=== PATIENT | male | born 1985 | race Two or more races ===

== ENCOUNTER 2024-06-03 16:29 | Emergency (ER) | payer OTHER ==
[~2024-06-03] VITALS: Ht 162.6 cm; Wt 84.8 kg
[2024-06-03] MEDS ORDERED: MAVYRET 100-401 EACH PO (16:53)
[2024-06-03] MEDS ORDERED: METADONA (16:53)
[2024-06-03] MEDS ORDERED: ZOLOFT100 MG PO (16:54)
[2024-06-03] MEDS ORDERED: VISTARIL50 MG/ML PO (16:54)
[2024-06-03] MEDS ORDERED: NEURONTIN300 MG PO (16:54)
[2024-06-03] MEDS ORDERED: RELAFEN DS1000 MG PO (16:55)
[2024-06-03] MEDS ORDERED: 0.9 % SODIUM CHLORIDE 1,000 ML IV ONE (17:15)
[2024-06-03] MEDS ORDERED: METOCLOPRAMIDE HCL 5 MG/ML VIAL IM ONE (17:15)
[2024-06-03] MEDS ORDERED: METOCLOPRAMIDE HCL 5 MG/ML VIAL ONE (17:34)
[2024-06-03 20:42] LABS: HEMOGLOBIN 12.9 g/dL (13-16.00); MEAN CELL VOLUME 88.3 fL (80.0-100.00); MEAN CORPUSCULAR HEMOGLOBIN 29.1 pg (27.00-32.0); PLATELET COUNT 260 K/uL (150-450); RED BLOOD COUNT 4.41 M/uL (4.00-6.00); RED CELL DISTRIBUTION WIDTH 14.3 % (11.5-14.5)
[2024-06-03 21:06] LABS: CALCIUM 9.4 mg/dL (8.5-10.1); CREATININE SERUM 0.91 mg/dL (0.70-1.30); GFR 92.75; POTASSIUM 4.67 mEq/L (3.5-5.1)
[2024-06-03] MEDS ORDERED: ACETAMINOPHEN 500 MG GEL..CAP PO ONE (21:30)
== END 2024-06-03 18:57 | disposition home or self-care (01) ==
LOC: ER 16:31
PROVIDERS: General Practice
DX: K52.89 Other specified noninfective gastroenteritis and colitis (principal); R19.7 Diarrhea, unspecified; Z20.822 Contact with and (suspected) exposure to COVID-19